=== PATIENT | female | born 1960 | race African-American/Black ===

== ENCOUNTER 2016-11-03 12:38 | Inpatient (IN) | payer MEDICAID ==
[~2016-11-03] VITALS: Ht 170.2 cm; Wt 61.9 kg
[~2016-11-03 12:38] MED LIST: AMLO5TAB2 PO; ASPI-498 OR; BENA10TA9 PO
[2016-11-03] MEDS ORDERED: SODIUM CHLORIDE 0.9% 1,000 ML IV ONE (13:24)
[2016-11-03 13:41] LABS: Basophils # (auto) 0 uL; Basophils % (auto) 0.4 % (0.0-2.0); Eosinophils # (auto) 0 uL; Eosinophils % (auto) 0.2 % (0.0-7.0); Hematocrit 31.4 % (36.0-46.0); Hemoglobin 10.2 g/dL (12.2-16.2); Lymphocytes # (auto) 1.9 uL; Mean Corpuscular Hemoglobin 29.1 pg (28.0-32.0); Mean Corpuscular Hgb Conc. 32.6 g/dL (32.0-36.0); Mean Corpuscular Volume 89.4 fL (80.0-100.0); Mean Platelet Volume 8.5 fL (6.9-10.8); Monocytes # (auto) 0.7 uL; Monocytes % (auto) 6.5 % (0.0-12.0); Neutrophils # (auto) 8.4 uL; Neutrophils % (auto) 75.9 % (37.0-80.0); Nucleated Red Blood Cells % 0.5 %; Platelet Count (auto) 354 10^3/uL (140-450); Red Cell Distribution Width 17.5 % (11.8-14.3)
[2016-11-03 14:02] LABS: Albumin 2.5 g/dL (3.4-5.0); Anion Gap 11 (5-15); Aspartate Aminotransferase 40 U/L (15-37); BUN/Creatinine Ratio 12.5; Blood Urea Nitrogen 25 mg/dL (7-18); Calcium 8.8 mg/dL (8.5-10.1); Chloride 80 mmol/L (98-107); GFR African American 33 mL/min; GFR Non-African American 27 mL/min; Glucose 142 mg/dL (74-106); Magnesium 2.1 mg/dL (1.6-2.6); Potassium 3.1 mmol/L (3.5-5.1); Sodium 134 mmol/L (136-145)
[2016-11-03 14:06] LABS: B-Type Natriuretic Peptide 24.24 pg/mL (0-100)
[2016-11-03 14:07] LABS: Alkaline Phosphatase 59 U/L (45-117); Bilirubin, Total 0.8 mg/dL (0.2-1.0); Total Protein 7.8 g/dL (6.4-8.2)
[2016-11-03 14:14] LABS: Carbon Dioxide 43 mmol/L (21-32); Temperature: 24.1 C (20.0-25.0)
[2016-11-03 14:18] LABS: Partial Thromboplastin Time 21.5 sec (22.64-33.71); Prothrombin Time 10.9 sec (9.37-12.3)
[2016-11-03] MEDS ORDERED: KETOROLAC TROMETH 30 MG/ML 1ML VIAL IV ONE (14:30)
[2016-11-03] MEDS ORDERED: POTASSIUM CHL 10% (20 MEQ/15ML) 15ml ORAL SOLN PO ONE (14:30)
[2016-11-03] MEDS ORDERED: POTASSIUM CHL 20MEQ/100ML 100 ML IV ONE (14:30)
[2016-11-03] MEDS ORDERED: cefTRIAXone 1GM/50ML D5W 50 ML IV ONE ×2 (15:00→15:15)
[2016-11-03] MEDS ORDERED: ENOXAPARIN SOD 80 MG/0.8ML SYRINGE SC ONE (15:00)
[2016-11-03] MEDS ORDERED: ACETAMINOPHEN 500 MG TAB PO PRN (15:15)
[2016-11-03] MEDS ORDERED: DEXTROSE (50%) 50ML SYRG IV PRN (15:15)
[2016-11-03] MEDS ORDERED: MORPHINE SULF INJ 2 MG/ML SYRINGE 1ML IV ONE (16:00)
[2016-11-03] MEDS ORDERED: amLODIPine BESYLATE 5 MG TAB PO ONE (16:00)
[2016-11-03] MEDS ORDERED: BENAZEPRIL HCL 10 MG TAB PO ONE (16:00)
[2016-11-03] MEDS ORDERED: ASPirin-EC 81 mg tab PO ONE (16:00)
[2016-11-03] MEDS ORDERED: PANTOPRAZOLE 40 MG TAB PO ONE (16:00)
[2016-11-03] MEDS: SODIUM CHLORIDE 0.9% 1,000 ML IV SCH (16:03)
[2016-11-03] MEDS: InsuLIN REG 1unit/0.01ml Soln (100units/ml) SC SCH (17:59)
[2016-11-03] MEDS: ACCU-CHEK COMFORT CURVE STRIP VI SCH (17:59)
[2016-11-03 18:04] VITALS: BP 105/71
[2016-11-03] MEDS: HYDROcodone-ACET 5/325MG TAB PO PRN (18:31)
[2016-11-03] MEDS: MORPHINE SULF INJ 2 MG/ML SYRINGE 1ML IV PRN (21:23)
[2016-11-03 22:00] VITALS: BP 102/57
[2016-11-03] MEDS: TEMAZEPAM 15 MG CAP PO PRN (22:16)
[2016-11-03 23:15] LABS: Urine Bilirubin Negative (Negative); Urine Blood Negative /uL (Negative); Urine Color Yellow (Yellow); Urine Glucose Normal (Normal); Urine Hyaline Cast FEW /lpf (0 - 2); Urine Ketone Negative (Negative); Urine Nitrite Negative (Negative); Urine RBC <1 /hpf (0 - 4); Urine Squamous Epithelial Cell MOD /hpf (<5); Urine pH 7.5 (5.0-8.0)
[2016-11-04] VITALS (7 sets, daily range): BP systolic 100–125; BP diastolic 62–70
[2016-11-04] MEDS: ACCU-CHEK COMFORT CURVE STRIP VI SCH ×2 (00:03→06:23)
[2016-11-04] MEDS: HYDROcodone-ACET 5/325MG TAB PO PRN ×4 (01:55→21:25)
[2016-11-04] MEDS: PROMETHAZINE HCL 25 MG/ML 1ML IV PRN ×3 (02:05→21:25)
[2016-11-04 02:56] LABS: Cholesterol 115 mg/dL (< 200); HDL Cholesterol 25 mg/dL (40-59); LDL Cholesterol 81 mg/dL (< 100); Triglycerides 98 mg/dL (< 150)
[2016-11-04] MEDS: SODIUM CHLORIDE 0.9% 1,000 ML IV SCH (05:56)
[2016-11-04] MEDS: InsuLIN REG 1unit/0.01ml Soln (100units/ml) SC SCH ×2 (06:00)
[2016-11-04 06:10] LABS: Basophils # (auto) 0 uL; Basophils % (auto) 0.2 % (0.0-2.0); Eosinophils # (auto) 0.1 uL; Eosinophils % (auto) 1.3 % (0.0-7.0); Hematocrit 23.6 % (36.0-46.0); Hemoglobin 7.7 g/dL (12.2-16.2); Lymphocytes # (auto) 3.1 uL; Mean Corpuscular Hemoglobin 29.2 pg (28.0-32.0); Mean Corpuscular Hgb Conc. 32.4 g/dL (32.0-36.0); Mean Platelet Volume 8.1 fL (6.9-10.8); Monocytes # (auto) 0.9 uL; Monocytes % (auto) 8.9 % (0.0-12.0); Neutrophils # (auto) 6.4 uL; Neutrophils % (auto) 60.6 % (37.0-80.0); Nucleated Red Blood Cells % 0.1 %; Red Cell Distribution Width 17.3 % (11.8-14.3); White Blood Cell 10.5 10^3/uL (4.4-10.8)
[2016-11-04 06:20] LABS: Platelet Count (auto) 285 10^3/uL (140-450)
[2016-11-04] MEDS: MORPHINE SULF INJ 2 MG/ML SYRINGE 1ML IV PRN ×3 (06:39→22:28)
[2016-11-04 06:46] LABS: Albumin 1.9 g/dL (3.4-5.0); Alkaline Phosphatase 48 U/L (45-117); Anion Gap 8 (5-15); Aspartate Aminotransferase 15 U/L (15-37); BUN/Creatinine Ratio 15.8; Bilirubin, Total 0.4 mg/dL (0.2-1.0); Blood Urea Nitrogen 24 mg/dL (7-18); Calcium 7.5 mg/dL (8.5-10.1); Chloride 88 mmol/L (98-107); GFR African American 46 mL/min; GFR Non-African American 38 mL/min; Glucose 117 mg/dL (74-106); Sodium 139 mmol/L (136-145)
[2016-11-04 07:03] LABS: Carbon Dioxide 43 mmol/L (21-32); Potassium 2.2 mmol/L (3.5-5.1)
[2016-11-04] MEDS ORDERED: POTASSIUM CHL 20 Meq TABLET PO ONE (07:15)
[2016-11-04] MEDS: cefTRIAXone 1GM/50ML D5W 50 ML IV SCH (08:32)
[2016-11-04] MEDS ORDERED: amLODIPine BESYLATE 5 MG TAB PO SCH (10:00)
[2016-11-04] MEDS ORDERED: PANTOPRAZOLE 40 MG TAB PO SCH (10:00)
[2016-11-04] MEDS ORDERED: ASPirin-EC 81 mg tab PO SCH (10:00)
[2016-11-04] MEDS ORDERED: BENAZEPRIL HCL 10 MG TAB PO SCH (10:00)
[2016-11-04] MEDS ORDERED: ENOXAPARIN SOD 40 MG/0.4 ML SYRINGE SC SCH (10:00)
[2016-11-04] MEDS: SOD CHL 0.9%/ KCL 40MEQ 1,000 ML IV SCH ×2 (12:33→21:15)
[2016-11-04 18:42] LABS: BUN/Creatinine Ratio 14.8; Calcium 7.5 mg/dL (8.5-10.1); Magnesium 1.8 mg/dL (1.6-2.6)
[2016-11-04 19:58] LABS: Potassium 2.6 mmol/L (3.5-5.1)
[2016-11-04] MEDS: Boost Breeze 8 Ounces PO SCH (21:25)
[2016-11-04] MEDS: TEMAZEPAM 15 MG CAP PO PRN (21:25)
[2016-11-04] MEDS: DOCUSATE SOD 100 MG CAP PO SCH (21:33)
[2016-11-05] VITALS (15 sets, daily range): BP systolic 105–178; BP diastolic 57–81
[2016-11-05] MEDS: NITROGLYCERIN 0.4 MG SL TAB SL PRN ×3 (00:05→00:15)
[2016-11-05] MEDS: MORPHINE SULF INJ 2 MG/ML SYRINGE 1ML IV PRN ×6 (00:15→22:35)
[2016-11-05] MEDS: LORazepam 0.5 MG TAB PO PRN ×3 (00:15→04:49)
[2016-11-05] MEDS: SOD CHL 0.9%/ KCL 40MEQ 1,000 ML IV SCH ×2 (04:28→17:21)
[2016-11-05] MEDS: HYDROcodone-ACET 5/325MG TAB PO PRN ×3 (04:52→17:15)
[2016-11-05] MEDS: PROMETHAZINE HCL 25 MG/ML 1ML IV PRN ×2 (05:15→15:51)
[2016-11-05] MEDS: Boost Breeze 8 Ounces PO SCH ×3 (05:32→22:35)
[2016-11-05 06:36] LABS: Basophils # (auto) 0 uL; Basophils % (auto) 0.3 % (0.0-2.0); Eosinophils # (auto) 0.1 uL; Lymphocytes # (auto) 3.3 uL; Nucleated Red Blood Cells % 0.1 %
[2016-11-05 06:44] LABS: Eosinophils % (auto) 0.9 % (0.0-7.0); Hematocrit 20.5 % (36.0-46.0); Lymphocytes % (auto) 32.8 % (10.0-50.0); Mean Corpuscular Hemoglobin 30.1 pg (28.0-32.0); Mean Corpuscular Hgb Conc. 33.1 g/dL (32.0-36.0); Mean Corpuscular Volume 90.8 fL (80.0-100.0); Mean Platelet Volume 8.2 fL (6.9-10.8); Monocytes # (auto) 0.8 uL; Monocytes % (auto) 7.7 % (0.0-12.0); Neutrophils # (auto) 5.9 uL; Neutrophils % (auto) 58.3 % (37.0-80.0); Platelet Count (auto) 286 10^3/uL (140-450); Red Cell Distribution Width 17.7 % (11.8-14.3); White Blood Cell 10.1 10^3/uL (4.4-10.8)
[2016-11-05 06:48] LABS: Hemoglobin 6.8 g/dL (12.2-16.2)
[2016-11-05 07:01] LABS: Albumin 1.8 g/dL (3.4-5.0); BUN/Creatinine Ratio 12.5; Bilirubin, Total 0.3 mg/dL (0.2-1.0); Calcium 7.4 mg/dL (8.5-10.1); Magnesium 1.7 mg/dL (1.6-2.6); Total Protein 5.5 g/dL (6.4-8.2)
[2016-11-05 07:04] LABS: Potassium 2.7 mmol/L (3.5-5.1)
[2016-11-05] MEDS ORDERED: POTASSIUM CHL 20 Meq TABLET PO ONE ×2 (07:15→10:30)
[2016-11-05] MEDS: PANTOPRAZOLE 40 MG/10 ML VIAL IV SCH (08:59)
[2016-11-05] MEDS: cefTRIAXone 1GM/50ML D5W 50 ML IV SCH (08:59)
[2016-11-05] MEDS: DOCUSATE SOD 100 MG CAP PO SCH ×2 (09:16→22:34)
[2016-11-05] MEDS: PRO-STAT 64 30ML PO SCH (09:17)
[2016-11-05] MEDS: MAGNESIUM SULFATE 1GM/100ML 100 ML IV SCH ×2 (11:05→14:09)
[2016-11-05] MEDS: TEMAZEPAM 15 MG CAP PO PRN (21:08)
[2016-11-06] MEDS: HYDROcodone-ACET 5/325MG TAB PO PRN ×2 (02:20→14:54)
[2016-11-06] MEDS: SOD CHL 0.9%/ KCL 40MEQ 1,000 ML IV SCH ×3 (02:20→23:34)
[2016-11-06 05:00] VITALS: BP 150/85
[2016-11-06] MEDS: MORPHINE SULF INJ 2 MG/ML SYRINGE 1ML IV PRN ×4 (05:57→21:47)
[2016-11-06] MEDS: PROMETHAZINE HCL 25 MG/ML 1ML IV PRN ×3 (05:58→23:46)
[2016-11-06] MEDS: Boost Breeze 8 Ounces PO SCH ×3 (06:00→22:00)
[2016-11-06 06:43] LABS: Basophils # (auto) 0 uL; Basophils % (auto) 0.5 % (0.0-2.0); Eosinophils # (auto) 0.1 uL; Eosinophils % (auto) 1.1 % (0.0-7.0); Hematocrit 29.3 % (36.0-46.0); Hemoglobin 9.5 g/dL (12.2-16.2); Lymphocytes % (auto) 37.4 % (10.0-50.0); Mean Corpuscular Hemoglobin 29.5 pg (28.0-32.0); Mean Corpuscular Hgb Conc. 32.5 g/dL (32.0-36.0); Mean Corpuscular Volume 90.9 fL (80.0-100.0); Mean Platelet Volume 8.8 fL (6.9-10.8); Monocytes # (auto) 0.7 uL; Monocytes % (auto) 6.6 % (0.0-12.0); Neutrophils # (auto) 5.9 uL; Neutrophils % (auto) 54.4 % (37.0-80.0); Nucleated Red Blood Cells % 0.1 %; Platelet Count (auto) 322 10^3/uL (140-450); Red Cell Distribution Width 18.5 % (11.8-14.3); White Blood Cell 10.8 10^3/uL (4.4-10.8)
[2016-11-06 06:54] LABS: Albumin 2.2 g/dL (3.4-5.0); Bilirubin, Total 0.6 mg/dL (0.2-1.0); Calcium 8.1 mg/dL (8.5-10.1)
[2016-11-06 08:00] VITALS: BP_SYST 142; BP_SYST 158; BP_DIAS 67; BP_DIAS 81
[2016-11-06] MEDS: cefTRIAXone 1GM/50ML D5W 50 ML IV SCH (09:00)
[2016-11-06] MEDS ORDERED: SODIUM CHLORIDE LOCK 10 ML ONE (09:28)
[2016-11-06] MEDS ORDERED: NALOXONE HCL 0.4 MG/ML VIAL ONE (09:28)
[2016-11-06] MEDS ORDERED: FLUMAZENIL 0.1 MG/ML INJ 10ML MDV IV ONE (09:28)
[2016-11-06] MEDS ORDERED: LIDOCAINE VISCOUS 2% 15ML UD ONE (09:28)
[2016-11-06] MEDS: PRO-STAT 64 30ML PO SCH (10:00)
[2016-11-06] MEDS: DOCUSATE SOD 100 MG CAP PO SCH ×2 (10:00→21:46)
[2016-11-06] MEDS: PANTOPRAZOLE 40 MG/10 ML VIAL IV SCH (10:00)
[2016-11-06] MEDS ORDERED: diphenhdrAMINE HCL 50 MG/1 ML VL ONE (10:08)
[2016-11-06] MEDS: fentaNYL CITRATE 100 MCG/2 ML VL ONE ×3 (10:08→10:14)
[2016-11-06] MEDS: MIDAZOLAM HCL 5 MG/ML-1ML VIAL ONE ×3 (10:08→10:14)
[2016-11-06] MEDS ORDERED: FAMOTIDINE (10MG/ML) 2ML VL IV ONE (10:45)
[2016-11-06] MEDS: SUCRALFATE 1 GM/10 ML ORAL SUSP PO SCH ×3 (11:30→21:46)
[2016-11-06 12:00] VITALS: BP 149/65
[2016-11-06 17:00] VITALS: BP 164/97
[2016-11-06 21:30] VITALS: BP 154/83
[2016-11-06] MEDS: TEMAZEPAM 15 MG CAP PO PRN (21:46)
[2016-11-06] MEDS: FAMOTIDINE (10MG/ML) 2ML VL IV SCH (21:54)
[2016-11-07] MEDS: HYDROcodone-ACET 5/325MG TAB PO PRN ×4 (00:28→22:05)
[2016-11-07] MEDS: LORazepam 0.5 MG TAB PO PRN ×3 (00:28→19:42)
[2016-11-07] MEDS: MORPHINE SULF INJ 2 MG/ML SYRINGE 1ML IV PRN ×4 (03:33→19:41)
[2016-11-07 05:00] VITALS: BP 159/87
[2016-11-07] MEDS: Boost Breeze 8 Ounces PO SCH ×3 (06:00→22:01)
[2016-11-07 06:15] LABS: Basophils # (auto) 0 uL; Basophils % (auto) 0.2 % (0.0-2.0); Eosinophils # (auto) 0.1 uL; Eosinophils % (auto) 1.1 % (0.0-7.0); Lymphocytes # (auto) 2.2 uL; Monocytes # (auto) 0.7 uL
[2016-11-07 06:21] LABS: Hematocrit 25.6 % (36.0-46.0); Hemoglobin 8.3 g/dL (12.2-16.2); Lymphocytes % (auto) 27.4 % (10.0-50.0); Mean Corpuscular Hemoglobin 29.3 pg (28.0-32.0); Mean Corpuscular Hgb Conc. 32.5 g/dL (32.0-36.0); Mean Corpuscular Volume 90.2 fL (80.0-100.0); Monocytes % (auto) 8.3 % (0.0-12.0); Nucleated Red Blood Cells % 0.1 %; Platelet Count (auto) 360 10^3/uL (140-450); White Blood Cell 7.9 10^3/uL (4.4-10.8)
[2016-11-07] MEDS: SUCRALFATE 1 GM/10 ML ORAL SUSP PO SCH ×4 (06:38→22:06)
[2016-11-07] MEDS: cefTRIAXone 1GM/50ML D5W 50 ML IV SCH (08:50)
[2016-11-07] MEDS: SOD CHL 0.9%/ KCL 40MEQ 1,000 ML IV SCH (09:05)
[2016-11-07] MEDS: PRO-STAT 64 30ML PO SCH (10:00)
[2016-11-07] MEDS: DOCUSATE SOD 100 MG CAP PO SCH ×2 (10:28→22:06)
[2016-11-07] MEDS: FAMOTIDINE (10MG/ML) 2ML VL IV SCH (10:29)
[2016-11-07] MEDS: PANTOPRAZOLE 40 MG/10 ML VIAL IV SCH (10:29)
[2016-11-07 10:49] VITALS: BP 148/84
[2016-11-07 18:44] VITALS: BP 142/90
[2016-11-07 22:00] VITALS: BP 160/99
[2016-11-07] MEDS: PANTOPRAZOLE 40 MG TAB PO SCH (22:06)
[2016-11-07] MEDS: TEMAZEPAM 15 MG CAP PO PRN (22:06)
[2016-11-08] MEDS: MORPHINE SULF INJ 2 MG/ML SYRINGE 1ML IV PRN ×2 (02:24→09:46)
[2016-11-08 05:00] VITALS: BP 164/86
[2016-11-08] MEDS: SUCRALFATE 1 GM/10 ML ORAL SUSP PO SCH ×2 (05:51→11:30)
[2016-11-08] MEDS: HYDROcodone-ACET 5/325MG TAB PO PRN (05:51)
[2016-11-08] MEDS: PROMETHAZINE HCL 25 MG/ML 1ML IV PRN (05:51)
[2016-11-08] MEDS: Boost Breeze 8 Ounces PO SCH (06:18)
[2016-11-08] MEDS: cefTRIAXone 1GM/50ML D5W 50 ML IV SCH (09:00)
[2016-11-08] MEDS: PANTOPRAZOLE 40 MG TAB PO SCH (10:00)
[2016-11-08] MEDS: DOCUSATE SOD 100 MG CAP PO SCH (10:00)
[2016-11-08] MEDS: PRO-STAT 64 30ML PO SCH (10:00)
== END 2016-11-08 12:24 | disposition home or self-care (01) | DRG 241 ==
LOC: ER 12:38 → TELE 12:39 → TELE-CENTR 17:20 → CENTRAL 11-07 12:31
PROVIDERS: ADMIT Internal Medicine; ATTEND Internal Medicine
PROC: 30233N1 Transfusion of Nonautologous Red Blood Cells into Peripheral Vein, Percutaneous Approach (ICD-10-PCS; principal; 2016-11-03)
PROC: 0DB58ZX Excision of Esophagus, Via Natural or Artificial Opening Endoscopic, Diagnostic (ICD-10-PCS; 2016-11-06)
PROC: 0DB68ZX Excision of Stomach, Via Natural or Artificial Opening Endoscopic, Diagnostic (ICD-10-PCS; 2016-11-06)
DX: K25.9 Gastric ulcer, unspecified as acute or chronic, without hemorrhage or perforation (principal); N17.0 Acute kidney failure with tubular necrosis; E44.0 Moderate protein-calorie malnutrition; I95.9 Hypotension, unspecified; E87.1 Hypo-osmolality and hyponatremia; K31.84 Gastroparesis; K29.70 Gastritis, unspecified, without bleeding; K20.9 Esophagitis, unspecified; I12.9 Hypertensive chronic kidney disease with stage 1 through stage 4 chronic kidney disease, or unspecified chronic kidney disease; N20.0 Calculus of kidney; E87.6 Hypokalemia; D63.8 Anemia in other chronic diseases classified elsewhere; N18.9 Chronic kidney disease, unspecified; F17.210 Nicotine dependence, cigarettes, uncomplicated; F12.90 Cannabis use, unspecified, uncomplicated; G47.00 Insomnia, unspecified; F19.10 Other psychoactive substance abuse, uncomplicated; K44.9 Diaphragmatic hernia without obstruction or gangrene; F14.90 Cocaine use, unspecified, uncomplicated; I70.8 Atherosclerosis of other arteries; E86.0 Dehydration; Z68.21 Body mass index [BMI] 21.0-21.9, adult; Z87.442 Personal history of urinary calculi; Z79.899 Other long term (current) drug therapy; Z82.49 Family history of ischemic heart disease and other diseases of the circulatory system
CPT/HCPCS: 36415; 71010; 74176; 78582; 80048; 80053; 80061; 80307; 81001; 82150; 82378; 82550; 82962; 83036; 83540; 83550; 83690; 83735; 83880; 84484; 85025; 85379; 85610; 85652; 85730; 86141; 86850; 86900; 86901; 86920; 87081; 87086; 93005; 93306; 93970; 96361; 96365; 96372; 96375; 99291; C9113; J0696; J1885; J2250; J3490